=== PATIENT | male | born 1980 | race Caucasian/White ===

== ENCOUNTER 2022-08-19 21:22 | Outpatient (CLI) | payer MEDICARE, MEDICAID | END 2022-08-19 21:23 | disposition critical access hospital (66) | LOC: EMS 21:22 | DX: R45.851 Suicidal ideations (principal); R44.0 Auditory hallucinations | CPT/HCPCS: A0425; A0429 ==

== ENCOUNTER 2022-08-19 21:39 | Emergency (ER) | payer MEDICARE, MEDICAID ==
[2022-08-19 22:05] LABS: BASOPHILS # (AUTO) 0.1 10^3/uL (0.0-0.1); BASOPHILS % (AUTO) 0.7 %; EOSINOPHILS # (AUTO) 0.1 10^3/uL (0.0-0.7); EOSINOPHILS % (AUTO) 1.3 %; HCT - HEMATOCRIT 46.7 % (42.0-52.0); HGB - HEMOGLOBIN 15.6 g/dL (14.0-18.0); LYMPHOCYTES # (AUTO) 2.5 10^3/uL (1.5-3.5); LYMPHOCYTES % (AUTO) 29.2 %; MEAN CORPUSCULAR HEMOGLOBIN 29.3 pg (27.0-31.0); MEAN CORPUSCULAR HGB CONC 33.4 g/dL (32.0-36.0); MEAN CORPUSCULAR VOLUME 87.8 fL (80.0-94.0); MEAN PLATELET VOLUME 10.1 fL (7.4-11.4); MONOCYTES % (AUTO) 11.2 %; NEUTROPHILS # (AUTO) 4.9 10^3/uL (1.5-6.6); NEUTROPHILS % (AUTO) 57.2 %; PLT - PLATELET COUNT 279 10^3/uL (130-450); RED BLOOD COUNT 5.32 10^6/uL (4.70-6.10); RED CELL DISTRIBUTION WIDTH 13.3 % (12.0-15.0); WHITE BLOOD COUNT 8.5 x10^3/uL (4.8-10.8)
[2022-08-19 22:05] LABS: MUDS CUTOFF CONCENTRATIONS CUTOFF CONC BELOW:
[2022-08-19 22:07] LABS: BILIRUBIN,URINE NEGATIVE (NEGATIVE); GLUCOSE, URINE (UA) NEGATIVE (NEGATIVE); KETONES,URINE (UA) NEGATIVE (NEGATIVE); LEUKOCYTE ESTERASE, URINE NEGATIVE (NEGATIVE); NITRITE,URINE NEGATIVE (NEGATIVE); OCCULT BLOOD,URINE NEGATIVE (NEGATIVE); PROTEIN,URINE NEGATIVE (NEGATIVE); UROBILINOGEN,URINE 0.2 (NORMAL) E.U./dL (NORMAL)
[2022-08-19 22:09] LABS: CLARITY,URINE CLEAR (CLEAR)
[2022-08-19 22:18] LABS: AMPHETAMINE SCREEN,URINE NEGATIVE (NEGATIVE); BARBITURATE SCREEN,UR NEGATIVE (NEGATIVE); BENZODIAZEPINES SCREEN, URINE NEGATIVE (NEGATIVE); COCAINE SCREEN URINE NEGATIVE (NEGATIVE); METHADONE SCREEN, URINE NEGATIVE (NEGATIVE); METHAMPHETAMINES SCREEN, URINE NEGATIVE (NEGATIVE); OPIATE SCREEN, URINE NEGATIVE (NEGATIVE); OXYCODONE SCREEN, URINE NEGATIVE (NEGATIVE); PROPOXYPHENE SCREEN, URINE NEGATIVE (NEGATIVE); THC CANNABINOID SCREEN, URINE NEGATIVE (NEGATIVE); TRICYCLIC ANTIDEPRESSANT,URINE NEGATIVE (NEGATIVE)
--- NOTE | 2022-08-19 22:24 | ED Physician Documentation ---
History of Present Illness - Stated complaint Stated Complaint: HALLUCINATIONS/SI - Chief complaint Chief Complaint: MHE - Additonal information Additional information: Patient is a 42-year-old male presenting to the emergency department with suicidal ideation.Reports a history of schizophrenia, previous episodes of suicidal ideation and suicidal attempt. Reports that for the last 3-4 days has been having thoughts of wanting to cut his wrists with a knife. Reports that he has been hearing voices but that they are not command hallucinations. He does not identify the voices. Denies visual hallucinations. He denies alcohol or substance abuse. Denies any intentional overdoses or activities for self-harm. Reports that he regularly takes Zyprexa and Wellbutrin but that he is not taking these medications "for a while". Was unable to tell me why he discontinued his psychiatric medications. Denies for fever, chills, sick contacts, chest pain, shortness of breath, abdominal pain, nausea, vomiting, diarrhea, constipation. Review of Systems Ten Systems: 10 systems reviewed and negative Constitutional: denies: Fever Eyes: denies: Loss of vision Ears: denies: Loss of hearing Nose: denies: Rhinorrhea / runny nose Throat: denies: Dental pain / toothache Cardiac: denies: Chest pain / pressure Respiratory: denies: Dyspnea GI: denies: Abdominal Pain : denies: Dysuria Skin: denies: Rash Musculoskeletal: denies: Neck pain Neurologic: denies: Generalized weakness Psychiatric: reports: Depressed, Suicidal, Hallucinations Endocrine: denies: Polydypsia PD PAST MEDICAL HISTORY - Present Medications Home Medications: Ambulatory Orders Medication Instructions Recorded Confirmed OLANZapine [Zyprexa] 20 mg PO DAILY 08/20/22 08/20/22 buPROPion HCL [Bupropion Xl] 300 mg PO DAILY 08/20/22 08/20/22 - Allergies Allergies/Adverse Reactions: Allergies Allergy/AdvReac Type Severity Reaction Status Date / Time No Known Drug Allergies Allergy Verified 08/19/22 21:42 PD ED PE NORMAL - Vitals Vital signs reviewed: Yes - General General: Alert and oriented X 3, No acute distress - HEENT HEENT: Atraumatic, PERRL, EOMI, Ears normal, Moist mucous membranes, Pharynx benign - Neck Neck: Supple, no meningeal sign, No bony TTP, No adenopathy, Thyroid normal - Cardiac Cardiac: RRR, No murmur, No gallop, Strong equal pulses - Respiratory Respiratory: No respiratory distress - Abdomen Abdomen: Normal bowel sounds, Soft - Male Male : Deferred - Rectal Rectal: Deferred - Back Back: No CVA TTP - Derm Derm: Normal color - Extremities Extremities: No deformity - Neuro Neuro: technology auditor 2-12 intact, No motor deficit, No sensory deficit, Normal speech PD ED PE EXPANDED - Psych Psych: Depressed, Suicidal, Withdrawn, Auditory hallucinations, Other (Patient withdrawn, flat affect, maintains continuous eye contact, does not appear to be responding to internal stimuli. Endorses for suicidal ideation with plan to cut wrists. Reports auditory hallucinations. Denies auditory hallucinations at this time. Denies visual hallucinations.) Results - Vitals Vitals: Vital Signs - 24 hr 08/19/22 08/19/22 08/20/22 21:42 21:44 04:12 Temperature 36.5 C 36.5 C Heart Rate 100 100 Respiratory 16 16 13 Rate Blood Pressure 147/98 H 147/98 H O2 Saturation 100 100 08/20/22 08/20/22 04:32 05:30 Temperature 36.2 C L 36.5 C Heart Rate 85 70 Respiratory 12 16 Rate Blood Pressure 126/74 122/74 O2 Saturation 96 100 Oxygen O2 Source Room air - EKG (time done) 2207 Rate: Rate (enter#) (91) Rhythm: NSR [place]: Normal Intervals: Normal [place], QRS normal. No: Prolonged QT Ischemia: T wave inversion - Labs Labs: Laboratory Tests 08/19/22 08/19/22 08/19/22 21:55 21:55 21:59 WBC 8.5 RBC 5.32 Hgb 15.6 Hct 46.7 MCV 87.8 MCH 29.3 MCHC 33.4 RDW 13.3 Plt Count 279 MPV 10.1 Neut # (Auto) 4.9 Lymph # (Auto) 2.5 [place] # (Auto) 1.0 Eos # (Auto) 0.1 Baso # (Auto) 0.1 Absolute Nucleated RBC 0.00 Nucleated RBC % 0.0 Sodium Potassium Chloride Carbon Dioxide Anion Gap BUN Creatinine Estimated GFR (MDRD) Glucose Calcium Magnesium Total Bilirubin AST ALT Alkaline Phosphatase Total Creatine Kinase Total Protein Albumin Globulin Albumin/Globulin Ratio Lipase TSH Urine Color YELLOW Urine Clarity CLEAR Urine pH 6.0 Ur Specific [place] 1.020 Urine Protein NEGATIVE Urine Glucose (UA) NEGATIVE Urine Ketones NEGATIVE Urine Occult Blood NEGATIVE Urine Nitrite NEGATIVE Urine Bilirubin NEGATIVE Urine Urobilinogen 0.2 (NORMAL) Ur Leukocyte Esterase NEGATIVE Ur Microscopic Review NOT INDICATED Urine Culture Comments NOT INDICATED Salicylates Urine Opiates Screen NEGATIVE Ur Oxycodone Screen NEGATIVE Urine Methadone Screen NEGATIVE Ur Propoxyphene Screen NEGATIVE Acetaminophen Ur Barbiturates Screen NEGATIVE Ur Tricyclics Screen NEGATIVE Ur Phencyclidine Scrn NEGATIVE Ur Amphetamine Screen NEGATIVE U Methamphetamines Scrn NEGATIVE U Benzodiazepines Scrn NEGATIVE Urine Cocaine Screen NEGATIVE U Cannabinoids Screen NEGATIVE Ethyl Alcohol SARS-CoV-2 (PCR) NOT DETECTED 08/19/22 08/19/22 08/20/22 21:59 21:59 01:11 WBC RBC Hgb Hct MCV MCH MCHC RDW Plt Count MPV Neut # (Auto) Lymph # (Auto) [place] # (Auto) Eos # (Auto) Baso # (Auto) Absolute Nucleated RBC Nucleated RBC % Sodium 137 Potassium 3.5 Chloride 102 Carbon Dioxide 25 Anion Gap 10.0 BUN 14 Creatinine 1.0 Estimated GFR (MDRD) 82 L Glucose 105 H Calcium 9.2 Magnesium 2.0 Total Bilirubin 0.8 AST 39 ALT 34 Alkaline Phosphatase 82 Total Creatine Kinase 529 H 381 H Total Protein 7.2 Albumin 4.4 Globulin 2.8 Albumin/Globulin Ratio 1.6 Lipase 33 TSH 2.05 Urine Color Urine Clarity Urine pH Ur Specific [place] Urine Protein Urine Glucose (UA) Urine Ketones Urine Occult Blood Urine Nitrite Urine Bilirubin Urine Urobilinogen Ur Leukocyte Esterase Ur Microscopic Review Urine Culture Comments Salicylates < 6.0 Urine Opiates Screen Ur Oxycodone Screen Urine Methadone Screen Ur Propoxyphene Screen Acetaminophen < 10 L Ur Barbiturates Screen Ur Tricyclics Screen Ur Phencyclidine Scrn Ur Amphetamine Screen U Methamphetamines Scrn U Benzodiazepines Scrn Urine Cocaine Screen U Cannabinoids Screen Ethyl Alcohol < 5.0 SARS-CoV-2 (PCR) PD MEDICAL DECISION MAKING - ED course Complexity details: reviewed results, d/w professional housing consultant ED course: Patient is 42-year-old male presenting to the emergency department with report of suicidal ideation with plan to slit his wrists as well as auditory hallucinations and a stated history of schizophrenia. Chart review demonstrates multiple evaluations at different facilities including the [facility], [facility], and a Medical [facility] in [facility] for similar presentations over the last few weeks. Afebrile, hemodynamically stable on arrival to the emergency department. Lab work obtained demonstrated a mild elevation in CK and patient was given IV hydration with recheck demonstrating improvement in the elevated CK. Urine tox screen negative. Patient evaluated independently by telehealth. Recommendation at this point is for voluntary placement. Patient was also initiated on Zyprexa and Wellbutrin by telepsych. At this time I will be signing the patient out to the oncoming physician, please see their documentation for further detail.
[2022-08-19 22:25] LABS: ACETAMINOPHEN < 10 ug/mL (10-30); ALBUMIN 4.4 g/dL (3.2-5.5); ALBUMIN/GLOBULIN RATIO 1.6 (1.0-2.2); ALKALINE PHOSPHATASE 82 IU/L (42-121); ALT ALANINE AMINOTRANSFERASE 34 IU/L (10-60); AST ASPARTATE AMINOTRANSFERASE 39 IU/L (10-42); BILIRUBIN,TOTAL 0.8 mg/dL (0.2-1.0); BUN - BLOOD UREA NITROGEN 14 mg/dL (6-20); CALCIUM 9.2 mg/dL (8.5-10.3); CARBON DIOXIDE - CO2 25 mmol/L (21-32); CHLORIDE 102 mmol/L (101-111); CK- CREATINE KINASE 529 IU/L (22-269); ETOH - ETHANOL < 5.0 mg/dL; GFR - MDRD 82 (>89); GLUCOSE 105 mg/dL (70-100); LIPASE 33 U/L (22-51); POTASSIUM 3.5 mmol/L (3.5-5.0); SALICYLATE < 6.0 mg/dL; SODIUM 137 mmol/L (135-145); TOTAL PROTEIN 7.2 g/dL (6.7-8.2)
[2022-08-19] MEDS ORDERED: SODIUM CHLORIDE 0.9% 2,000 ML IV STA (23:15)
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
[2022-08-20] MEDS ORDERED: buPROPion XL 150 MG TABLET PO SCH (09:00)
[2022-08-20] MEDS ORDERED: OLANZapine ODT 5 MG TABLET TL SCH (09:00)
[2022-08-20] MEDS ORDERED: OLANZapine ODT 5 MG TABLET TL ONE (11:40)
--- NOTE | 2022-08-20 16:13 | ED Physician Documentation ---
ED Addendum - Addendum Addendum: 08/20/22 16:11 The patient has remained cooperative and pleasant here in the ER. He did have somewhat increased feeling of hearing voices. He was given an extra dose of Zyprexa orally with improvement. He met with social work Sonali who agreed the patient can be admitted voluntarily. The patient was wanting hospitalization. The social sciences instructor sent his information to a couple of psychiatric facilities and [facility] accepted him in transfer. The patient remained with some suicidal ideation but no particular plan and no gestures prehospital. He remained in the hallway with good visualization. The patient will be transferred to psychiatric facility in stable condition. Diagnoses: 1. Depression with schizoaffective disorder 2. Suicidal ideation
[2022-08-20 19:54] VITALS: BP 127/82
== END 2022-08-20 21:05 ==
LOC: ED 21:39
DX: R45.851 Suicidal ideations (principal); R44.0 Auditory hallucinations; F32.A Depression, unspecified; F25.9 Schizoaffective disorder, unspecified; Z91.14 Patient's other noncompliance with medication regimen; Z20.822 Contact with and (suspected) exposure to COVID-19
CPT/HCPCS: 36415; 80053; 80306; 80307; 81003; 82550; 83690; 83735; 84443; 85025; 87635; 93005; 99285; A9270; G0427; G0480; Q3014; 80320; 80329; 81001; 87086